=== PATIENT | female | born 1960 | race Caucasian/White ===

== ENCOUNTER → 2019-10-12 | Day surgery (SDC) | payer OTHER ==
[~2019-10-12] MED LIST: ALBUTEROL0.63 MG/3 INH; FENTANYL CITRATE/PF 100MCG/2 ML INJ ONE; FLUOXETINE HCL10 MG PO; MIDAZOLAM HCL 2 MG/2 ML VIAL ONE; PROPOFOL IV EMULSION 10 MG/ML 20 ML VIAL ONE; [UNRECOGNIZED DRUG - OTHER] PO
[2019-10-12 14:40] VITALS: BP 128/75
== END | disposition home or self-care (01) ==
LOC: OR 10:35
PROVIDERS: ATTEND Internal Medicine Gastroenterology
DX: Z12.11 Encounter for screening for malignant neoplasm of colon (principal); D12.0 Benign neoplasm of cecum; D12.3 Benign neoplasm of transverse colon; D12.5 Benign neoplasm of sigmoid colon; K64.8 Other hemorrhoids; J44.9 Chronic obstructive pulmonary disease, unspecified; R00.1 Bradycardia, unspecified; R56.9 Unspecified convulsions; F31.9 Bipolar disorder, unspecified; Z01.810 Encounter for preprocedural cardiovascular examination; Z01.812 Encounter for preprocedural laboratory examination; Z11.59 Encounter for screening for other viral diseases; Z79.82 Long term (current) use of aspirin
CPT/HCPCS: 45384; 87635; 93005; J2250; J2704; J3010; 45378